=== PATIENT | male | born 1955 | race Caucasian/White ===

== ENCOUNTER 2019-08-14 08:29 | Inpatient (IN) ==
[2019-08-14 09:11] LABS: Basophils # 0.1 10*3/uL (0.0-0.2); Basophils % 0.7 % (0.0-0.8); Eosinophils # 0.1 10*3/uL (0.0-0.87); Eosinophils % 1.1 % (0.00-10.9); Hematocrit 42.4 VOL% (42.0-52.0); Immature Granulocytes % 1.3 %; Immature Granulocytes Absolute 0.13 #; Lymphocytes # 1.7 10*3/uL (1.4-4.0); Lymphocytes % 17.4 % (21.2-54.2); Mean Corpuscular Volume 87.2 FL (87-102); Mean Platelet Volume 10.2 FL (9.6-12.0); Monocytes % 6.1 % (1.7-12.7); Neutrophils % 73.4 % (38.7-73.9); Platelet Count 212 T/CUMM (130-400); Red Blood Count 4.86 MC/CUMM (3.8-5.5); Red Cell Distribution Width 13.9 % (9.3-17.3); White Blood Count 9.6 T/CUMM (4-12)
[2019-08-14 09:31] LABS: INR 1.1; Partial Thromboplastin Time 27.3 SECS (20.8-36.0)
[2019-08-14 09:44] LABS: Albumin 3.7 G/DL (3.4-5.0); Osmolality,Calculated 288.8 MOS/KG (273-304); Total Protein 7.1 G/DL (6.4-8.3)
[2019-08-14] MEDS ORDERED: ALBUTEROL/IPRATROPIUM 3 ML NEB RESP TX STA (09:50)
[2019-08-14] MEDS ORDERED: hydrALAZINE 20 MG/1 ML VIAL IV STA (09:50)
[2019-08-14] MEDS ORDERED: FUROSEMIDE 40 MG/4 ML VIAL IV STA (10:17)
[2019-08-14 10:54] LABS: Apearance,Urine CLEAR (Clear); Bacteria,Urine Occasional /HPF (Few); Bilirubin,Urine Negative (Negative); Blood, Urine Negative (Negative); Glucose,Urine (UA) Negative (Negative); Ketones,Urine Negative (Negative); Mucus,Urine Occasional /LPF (Occasional); Nitrite,Urine Negative (Negative); Protein,Urine Negative; RBC,Urine 1 /HPF (0-4); Urine Color Yellow (Yellow); Urine Specific Gravity 1.013 (1.001-1.035); Urine Urobilinogen < 2.0 EU/DL (0.2-1.0); WBC,Urine <1 /HPF (0-6)
[2019-08-14 10:59] LABS: Barbiturates Screen,Urine Negative (Negative); Benzodiazepines Screen,Urine Negative (Negative); Cannabinoid Screen,Urine Negative (Negative); Opiate Screen,Urine Negative (Negative); Phencyclidine Screen,Urine Negative (Negative)
[2019-08-14] MEDS ORDERED: ONDANSETRON 4 MG/2 ML VIAL IV PRN (14:11)
[2019-08-14] MEDS ORDERED: ACETAMINOPHEN 325 MG TABLET PO PRN (14:11)
[2019-08-14] MEDS ORDERED: DEXTROSE 50% 25 GM/50 ML VIAL IV PRN (14:11)
[2019-08-14] MEDS ORDERED: GLUCAGON 1 MG VIAL IM PRN (14:11)
[2019-08-14] MEDS ORDERED: hydrALAZINE 20 MG/1 ML VIAL IV PRN (16:05)
[2019-08-14] MEDS ORDERED: INFLUENZA VIRUS VACCINE 0.5 ML SYRINGE IM ONE (16:05)
[2019-08-14] MEDS: FUROSEMIDE 40 MG/4 ML VIAL IV SCH (17:07)
[2019-08-14] MEDS: ENOXAPARIN 40 MG/0.4 ML SYRINGE SUBCUT SCH (17:07)
[2019-08-14] MEDS: INSULIN REGULAR 100 UNIT/ML SUBCUT SCH ×2 (17:28→21:16)
[2019-08-14] MEDS: ASPIRIN EC 81 MG TABLET PO SCH (21:13)
[2019-08-15 05:11] LABS: Basophils # 0.1 10*3/uL (0.0-0.2); Basophils % 0.6 % (0.0-0.8); Eosinophils # 0.1 10*3/uL (0.0-0.87); Eosinophils % 1.4 % (0.00-10.9); Hematocrit 39.5 VOL% (42.0-52.0); Hemoglobin 12.7 GM/DL (14.0-18.0); Immature Granulocytes % 0.3 %; Immature Granulocytes Absolute 0.03 #; Lymphocytes # 2.3 10*3/uL (1.4-4.0); Lymphocytes % 25.1 % (21.2-54.2); Mean Corpuscular HGB Conc 32.2 GM/DL (32-36); Mean Corpuscular Volume 87.6 FL (87-102); Mean Platelet Volume 10.5 FL (9.6-12.0); Monocytes % 9.6 % (1.7-12.7); Platelet Count 211 T/CUMM (130-400); Red Blood Count 4.51 MC/CUMM (3.8-5.5); Red Cell Distribution Width 13.9 % (9.3-17.3); White Blood Count 9.3 T/CUMM (4-12)
[2019-08-15 05:36] LABS: Calcium 8.8 MG/DL (8.5-10.1)
[2019-08-15] MEDS: INSULIN REGULAR 100 UNIT/ML SUBCUT SCH ×4 (08:33→21:04)
[2019-08-15] MEDS: amLODIPine 10 MG TABLET PO SCH (08:34)
[2019-08-15] MEDS: PANTOPRAZOLE 40 MG TABLET PO SCH (08:34)
[2019-08-15] MEDS: NEBIVOLOL 10 MG TABLET PO SCH (08:34)
[2019-08-15] MEDS: SIMVASTATIN 20 MG TABLET PO SCH (08:34)
[2019-08-15] MEDS: SPIRONOLACTONE 50 MG TABLET PO SCH (08:34)
[2019-08-15] MEDS: FUROSEMIDE 40 MG/4 ML VIAL IV SCH ×2 (08:34→15:23)
[2019-08-15] MEDS ORDERED: LOSARTAN 50 MG TABLET PO SCH (09:00)
[2019-08-15] MEDS: ENOXAPARIN 40 MG/0.4 ML SYRINGE SUBCUT SCH (15:23)
[2019-08-15] MEDS: TERAZOSIN 5 MG CAPSULE PO SCH (16:36)
[2019-08-15] MEDS: ASPIRIN EC 81 MG TABLET PO SCH (21:03)
[2019-08-16 05:26] LABS: Basophils # 0.1 10*3/uL (0.0-0.2); Basophils % 0.6 % (0.0-0.8); Eosinophils # 0.2 10*3/uL (0.0-0.87); Eosinophils % 2.5 % (0.00-10.9); Hematocrit 38.5 VOL% (42.0-52.0); Hemoglobin 12.7 GM/DL (14.0-18.0); Immature Granulocytes % 0.5 %; Immature Granulocytes Absolute 0.04 #; Lymphocytes # 2.2 10*3/uL (1.4-4.0); Lymphocytes % 27.7 % (21.2-54.2); Mean Corpuscular Volume 87.3 FL (87-102); Mean Platelet Volume 10.3 FL (9.6-12.0); Monocytes % 10.6 % (1.7-12.7); Neutrophils % 58.1 % (38.7-73.9); Platelet Count 191 T/CUMM (130-400); Red Blood Count 4.41 MC/CUMM (3.8-5.5); Red Cell Distribution Width 13.9 % (9.3-17.3); White Blood Count 7.9 T/CUMM (4-12)
[2019-08-16 06:00] LABS: Calcium 8.2 MG/DL (8.5-10.1); Osmolality,Calculated 283.1 MOS/KG (273-304)
[2019-08-16] MEDS ORDERED: POTASSIUM CHLORIDE 20 MEQ TABLET PO ONE (06:25)
[2019-08-16] MEDS ORDERED: POTASSIUM CHLORIDE 20 MEQ TABLET PO PRN (08:19)
[2019-08-16] MEDS: FUROSEMIDE 40 MG/4 ML VIAL IV SCH ×2 (08:22→17:46)
[2019-08-16] MEDS: INSULIN REGULAR 100 UNIT/ML SUBCUT SCH ×4 (08:23→21:53)
[2019-08-16] MEDS: SPIRONOLACTONE 50 MG TABLET PO SCH (08:24)
[2019-08-16] MEDS: amLODIPine 10 MG TABLET PO SCH (08:25)
[2019-08-16] MEDS: OLMESARTAN 20 MG TABLET PO SCH (08:25)
[2019-08-16] MEDS: PANTOPRAZOLE 40 MG TABLET PO SCH (08:25)
[2019-08-16] MEDS: POTASSIUM CHLORIDE 20 MEQ TABLET PO SCH (08:25)
[2019-08-16] MEDS: SIMVASTATIN 20 MG TABLET PO SCH (08:25)
[2019-08-16] MEDS: MAGNESIUM OXIDE 400 MG TABLET PO SCH ×2 (08:25→20:46)
[2019-08-16] MEDS: NEBIVOLOL 10 MG TABLET PO SCH (08:25)
[2019-08-16] MEDS ORDERED: DEXTROSE 50% 25 GM/50 ML VIAL IV PRN (09:33)
[2019-08-16] MEDS ORDERED: DEXTROSE 10% 250 ML BAG IV PRN (09:50)
[2019-08-16] MEDS ORDERED: MAGNESIUM SULF RIDER 2 GM in PREMIX 1 EACH IV PRN (11:00)
[2019-08-16] MEDS ORDERED: POTASSIUM CHLORIDE RIDER 10 MEQ in PREMIX 1 EACH IV PRN (11:00)
[2019-08-16] MEDS: ENOXAPARIN 40 MG/0.4 ML SYRINGE SUBCUT SCH (14:50)
[2019-08-16] MEDS: TERAZOSIN 5 MG CAPSULE PO SCH (17:37)
[2019-08-16] MEDS: ASPIRIN EC 81 MG TABLET PO SCH (20:46)
[2019-08-17 05:41] LABS: Basophils # 0.1 10*3/uL (0.0-0.2); Basophils % 0.8 % (0.0-0.8); Eosinophils # 0.3 10*3/uL (0.0-0.87); Eosinophils % 3.4 % (0.00-10.9); Hematocrit 39.9 VOL% (42.0-52.0); Immature Granulocytes % 0.5 %; Immature Granulocytes Absolute 0.04 #; Lymphocytes # 2.4 10*3/uL (1.4-4.0); Lymphocytes % 31.1 % (21.2-54.2); Mean Corpuscular HGB Conc 32.6 GM/DL (32-36); Mean Corpuscular Volume 87.3 FL (87-102); Mean Platelet Volume 10.8 FL (9.6-12.0); Monocytes % 9.9 % (1.7-12.7); Neutrophils % 54.3 % (38.7-73.9); Platelet Count 187 T/CUMM (130-400); Red Blood Count 4.57 MC/CUMM (3.8-5.5); Red Cell Distribution Width 13.8 % (9.3-17.3); White Blood Count 7.7 T/CUMM (4-12)
[2019-08-17 05:58] LABS: Calcium 8.4 MG/DL (8.5-10.1); Osmolality,Calculated 289.7 MOS/KG (273-304)
[2019-08-17 06:00] LABS: Calcium 8.2 MG/DL (8.5-10.1); Osmolality,Calculated 289.7 MOS/KG (273-304)
[2019-08-17] MEDS: INSULIN REGULAR 100 UNIT/ML SUBCUT SCH ×4 (08:29→20:43)
[2019-08-17] MEDS: FUROSEMIDE 40 MG/4 ML VIAL IV SCH ×2 (09:01→16:35)
[2019-08-17] MEDS: SODIUM CHLORIDE 0.9% 1,000 ML IV SCH ×3 (09:01→21:23)
[2019-08-17] MEDS: MAGNESIUM OXIDE 400 MG TABLET PO SCH ×2 (09:02→20:45)
[2019-08-17] MEDS: PANTOPRAZOLE 40 MG TABLET PO SCH (09:02)
[2019-08-17] MEDS: POTASSIUM CHLORIDE 20 MEQ TABLET PO SCH (09:02)
[2019-08-17] MEDS: SPIRONOLACTONE 50 MG TABLET PO SCH (09:02)
[2019-08-17] MEDS: amLODIPine 10 MG TABLET PO SCH (09:02)
[2019-08-17] MEDS: OLMESARTAN 20 MG TABLET PO SCH (09:02)
[2019-08-17] MEDS: NEBIVOLOL 10 MG TABLET PO SCH (09:02)
[2019-08-17] MEDS ORDERED: ALBUTEROL 2.5 MG/3 ML NEB RESP TX PRN (10:31)
[2019-08-17] MEDS ORDERED: diphenhydrAMINE CAP 25 MG CAPSULE PO ONE (12:00)
[2019-08-17] MEDS ORDERED: DIAZEPAM 5 MG TABLET PO ONE (12:00)
[2019-08-17] MEDS ORDERED: HEPARIN/NACL 0.9% 2 UNITS/ML 1,000 ML IV ONE (12:36)
[2019-08-17] MEDS ORDERED: LIDOCAINE 1% 20 ML VIAL ONE (12:36)
[2019-08-17] MEDS ORDERED: NITROGLYCERIN DRIP 50 MG/250 ML BOTTLE IV ONE (12:36)
[2019-08-17] MEDS ORDERED: VERAPAMIL 5 MG/2 ML VIAL ONE (12:36)
[2019-08-17] MEDS ORDERED: fentaNYL 100 MCG/2 ML VIAL ONE (12:55)
[2019-08-17] MEDS ORDERED: MIDAZOLAM 2 MG/2 ML VIAL ONE ×2 (12:55→13:27)
[2019-08-17] MEDS ORDERED: HEPARIN 5,000 UNIT/1 ML VIAL ONE ×2 (13:13→13:30)
[2019-08-17] MEDS ORDERED: HYDROmorphone 2 MG/1 ML VIAL ONE (13:27)
[2019-08-17] MEDS ORDERED: TIROFIBAN 5,000 MCG/100 ML PREMIX IV ONE (13:32)
[2019-08-17] MEDS ORDERED: hydrALAZINE 20 MG/1 ML VIAL ONE (14:16)
[2019-08-17] MEDS ORDERED: TICAGRELOR 90 MG TABLET ONE (14:17)
[2019-08-17] MEDS: TERAZOSIN 5 MG CAPSULE PO SCH (17:03)
[2019-08-17] MEDS: ENOXAPARIN 40 MG/0.4 ML SYRINGE SUBCUT SCH (17:12)
[2019-08-17] MEDS: ZALEPLON 5 MG CAPSULE PO PRN (20:44)
[2019-08-17] MEDS: ASPIRIN EC 81 MG TABLET PO SCH (20:45)
[2019-08-17] MEDS: ROSUVASTATIN 20 MG TABLET PO SCH (20:45)
[2019-08-17] MEDS: TICAGRELOR 90 MG TABLET PO SCH (20:45)
[2019-08-17] MEDS ORDERED: SIMVASTATIN 20 MG TABLET PO SCH (21:00)
[2019-08-18 04:45] LABS: Basophils # 0.1 10*3/uL (0.0-0.2); Basophils % 0.7 % (0.0-0.8); Eosinophils # 0.2 10*3/uL (0.0-0.87); Eosinophils % 2.6 % (0.00-10.9); Hematocrit 38.4 VOL% (42.0-52.0); Hemoglobin 12.5 GM/DL (14.0-18.0); Immature Granulocytes % 0.4 %; Immature Granulocytes Absolute 0.04 #; Lymphocytes % 21.6 % (21.2-54.2); Mean Corpuscular HGB Conc 32.6 GM/DL (32-36); Mean Corpuscular Volume 87.1 FL (87-102); Mean Platelet Volume 10.1 FL (9.6-12.0); Monocytes % 9.4 % (1.7-12.7); Neutrophils % 65.3 % (38.7-73.9); Platelet Count 198 T/CUMM (130-400); Red Blood Count 4.41 MC/CUMM (3.8-5.5); Red Cell Distribution Width 13.8 % (9.3-17.3); White Blood Count 9.1 T/CUMM (4-12)
[2019-08-18 05:05] LABS: Calcium 8.2 MG/DL (8.5-10.1); Osmolality,Calculated 284.3 MOS/KG (273-304)
[2019-08-18 05:07] LABS: Risk Ratio 5.96; VLDL CHOLESTEROL 42.6 MG/DL
[2019-08-18] MEDS ORDERED: TERAZOSIN 5 MG CAPSULE PO SCH (07:36)
[2019-08-18] MEDS: INSULIN REGULAR 100 UNIT/ML SUBCUT SCH ×4 (08:38→20:41)
[2019-08-18] MEDS ORDERED: NITROGLYCERIN SL 0.4 MG TABLET SL PRN (09:40)
[2019-08-18] MEDS ORDERED: FUROSEMIDE 20 MG/2 ML VIAL ONE (09:50)
[2019-08-18] MEDS: SPIRONOLACTONE 50 MG TABLET PO SCH (09:54)
[2019-08-18] MEDS: OLMESARTAN 20 MG TABLET PO SCH (09:54)
[2019-08-18] MEDS: TICAGRELOR 90 MG TABLET PO SCH ×2 (09:55→20:41)
[2019-08-18] MEDS: NEBIVOLOL 10 MG TABLET PO SCH (09:55)
[2019-08-18] MEDS: amLODIPine 10 MG TABLET PO SCH (09:56)
[2019-08-18] MEDS: PANTOPRAZOLE 40 MG TABLET PO SCH (09:56)
[2019-08-18] MEDS: MONTELUKAST 10 MG TABLET PO SCH (09:56)
[2019-08-18] MEDS: POTASSIUM CHLORIDE 20 MEQ TABLET PO SCH ×2 (09:56→20:41)
[2019-08-18] MEDS: ALLOPURINOL 100 MG TABLET PO SCH (09:56)
[2019-08-18] MEDS: MAGNESIUM OXIDE 400 MG TABLET PO SCH ×2 (09:56→21:36)
[2019-08-18] MEDS: FUROSEMIDE 40 MG/4 ML VIAL IV SCH ×2 (09:59→17:38)
[2019-08-18] MEDS: TERAZOSIN 10 MG CAPSULE PO SCH ×2 (10:54→20:41)
[2019-08-18] MEDS: SODIUM CHLORIDE 0.9% 1,000 ML IV SCH (12:39)
[2019-08-18] MEDS: ASPIRIN EC 81 MG TABLET PO SCH (20:41)
[2019-08-18] MEDS: ROSUVASTATIN 20 MG TABLET PO SCH (20:41)
[2019-08-18] MEDS: ZALEPLON 5 MG CAPSULE PO PRN (20:45)
[2019-08-19 05:11] LABS: Osmolality,Calculated 286.1 MOS/KG (273-304)
[2019-08-19] MEDS: INSULIN REGULAR 100 UNIT/ML SUBCUT SCH ×2 (08:37→12:33)
[2019-08-19] MEDS: OLMESARTAN 20 MG TABLET PO SCH (08:53)
[2019-08-19] MEDS: SPIRONOLACTONE 50 MG TABLET PO SCH (08:53)
[2019-08-19] MEDS: NEBIVOLOL 10 MG TABLET PO SCH (08:54)
[2019-08-19] MEDS: TICAGRELOR 90 MG TABLET PO SCH (08:54)
[2019-08-19] MEDS: MAGNESIUM OXIDE 400 MG TABLET PO SCH (08:55)
[2019-08-19] MEDS: POTASSIUM CHLORIDE 20 MEQ TABLET PO SCH (08:55)
[2019-08-19] MEDS: PANTOPRAZOLE 40 MG TABLET PO SCH (08:55)
[2019-08-19] MEDS: amLODIPine 10 MG TABLET PO SCH (08:55)
[2019-08-19] MEDS: ALLOPURINOL 100 MG TABLET PO SCH (08:56)
[2019-08-19] MEDS: MONTELUKAST 10 MG TABLET PO SCH (08:56)
[2019-08-19] MEDS: TERAZOSIN 10 MG CAPSULE PO SCH (09:00)
[2019-08-19] MEDS: FUROSEMIDE 40 MG/4 ML VIAL IV SCH (09:03)
[2019-08-19 12:27] VITALS: BP 142/72
[2019-08-19] MEDS ORDERED: FUROSEMIDE 40 MG TABLET PO SCH (16:00)
== END 2019-08-19 13:27 | disposition home or self-care (01) | DRG 247 ==
LOC: N.EDINP 08:29 → N.ED 08:29 → SUATTDRO 14:11 → N.5E 15:00 → N.TELES 08-17 14:51
PROVIDERS: ADMIT Internal Medicine; ATTEND Family Medicine
PROC: CLCCHCL (ICD-10-PCS; 2019-08-17 13:15)